=== PATIENT | male | born 1940 | race Caucasian/White ===

== ENCOUNTER 2017-11-21 14:59 | Emergency (ER) | payer OTHER ==
[~2017-11-21] VITALS: Ht 180.3 cm; Wt 94.8 kg
[~2017-11-21 14:59] MED LIST: ADULT LOW DOSE81 M1 PO; ASPIRIN E.C.81 M1 PO; Ascorbic Acid,Ester- PO; CALCIUM 600 +1 EAC4 PO; CEPHALEXIN500 MG PO; COUMADIN5 MG PO; DAILY VALUE1 EACH PO; DILAUDID2 MG PO; DOCUSATE SODIU100 MG PO; ENDOCET 5-3251 EACH PO; FLORASTOR250 MG PO; JANTOVEN3 MG PO; LANTUS 10100 UNITS/ SC; LANTUS 3 M100 UNITS/ SC; LANTUS100 UNIT/1 SQ; LEVEMIR100 UNIT/2 SC; LIDODERM 5% P1 PATCH TD; LISINOPRIL5 MG PO; LO-DOSE ASPIRIN81 M1 PO; LOPRESSOR50 MG PO; METFORMIN HCL1000 MG PO; MOVE IT ALONG100 MG PO; MULTIVITAMIN1 EAC1 PO; Medrol PO; NITROSTAT,NITR0.4 M1 SL; NOVOLOG 10100 UNITS/ SC; NOVOLOG PE100 UNITS/ SC; NOVOLOG100 UNIT/2 SQ; Oyst-Cal D, Oscal W/ PO; PERCOCET 5/31 TABLET PO; PLETAL50 MG PO; PRINIVIL20 MG PO; PROTONIX40 MG PO; SENOKOT S,PE1 TABLET PO; SIMVASTATIN40 M1 PO; SIMVASTATIN40 MG PO; THERAGRAN1 TABLET PO; TORSEMIDE100 MG PO; Tylenol Regular Stre PO; WARFARIN SODIUM5 MG PO; ZESTRIL10 MG PO; ZOSYN 3.3753.375 GM IV; Zocor PO
[2017-11-21 17:31] LABS: HEMATOCRIT 39.5 % (38.0-50.0); HEMOGLOBIN 13.4 G/DL (12.5-16.6); MCH 33.3 PG (29.0-34.0); MCHC 33.9 G/DL (30.0-36.0); PLATELET COUNT 181 K/uL (156-360); RBC DIS.WIDTH-CV 13.5 % (11.8-14.6); RBC DIS.WIDTH-SD 49.1 % (39-53); RED BLOOD COUNT 4.03 M/uL (4.00-5.50); WHITE BLOOD COUNT 7.8 K/uL (4.1-10.2)
[2017-11-21 17:41] LABS: CHLORIDE 103 mEq/L (99-109); POTASSIUM 4.6 mEq/L (3.7-5.4); SODIUM 139 mEq/L (136-147)
[2017-11-21 17:43] LABS: GLUCOSE 96 mg/dL (70-99)
[2017-11-21 17:47] LABS: CREATININE 1.6 mg/dL (0.6-1.3); GFR ESTIMATE (CALCULATED) 45 mL/min/ (58.99-99999)
[2017-11-21 17:48] LABS: UREA NITROGEN (BUN) 32 mg/dL (9-23)
[2017-11-21 17:49] LABS: INTER. NORMALIZED RATIO 1.6
[2017-11-21 17:52] LABS: PTT 35.6 SEC (25-37)
[2017-11-21 19:04] VITALS: BP 148/70
== END 2017-11-21 19:05 | disposition home or self-care (01) ==
LOC: EME 14:59
PROVIDERS: Physician Assistant
DX: R23.3 Spontaneous ecchymoses (principal); I11.0 Hypertensive heart disease with heart failure; I50.9 Heart failure, unspecified; E11.9 Type 2 diabetes mellitus without complications; Z79.01 Long term (current) use of anticoagulants; Z95.1 Presence of aortocoronary bypass graft; Z79.4 Long term (current) use of insulin; Z87.891 Personal history of nicotine dependence
CPT/HCPCS: 80048; 85027; 85610; 85730; 93971; 99281; 99284